=== PATIENT | female | born 1960 | race Caucasian/White ===

== ENCOUNTER → 2017-12-17 09:35 | Outpatient (CLI) | payer BC, SELFPAY ==
[2017-12-17 12:23] LABS: Absolute Lymphocyte Count 3.17 X10^3/ul (0.83-4.51); Basophil# 0.06 X10^3/uL; Eosinophil# 0.34 X10^3/uL; Eosinophils% 5.5 % (0-5); Hematocrit 37.6 % (37-47); Lymphocyte # 3.17 X10^3/ul (4.0); Lymphocyte % 51.3 % (19-41); Mean Corp Hgb Conc 31.9 g/gl (32-36); Mean Corpuscular Hgb 29.6 pg (27.0-32.0); Mean Corpuscular Volume 92.8 fL (81-99); Mean Platelet Vol. 11.4 fl (6.2-12.0); Monocyte% 9.7 % (0-10); Neutrophil % 32.3 % (47-70); Platelet Count 297 K/mm3 (150-450); RBC Distribution Width SD 43.1 fl (35.1-43.9); Red Blood Count 4.05 M/mm3 (4.2-5.4); White Blood Count 6.2 K/mm3 (4.4-11.0)
[2017-12-17 12:38] LABS: POSITIVE COUNT NO; POSITIVE DIFFERENTIAL NO; POSITIVE MORPHOLOGY NO
[2017-12-17 12:58] LABS: Cholesterol 146 mg/dL (200); Ferritin 44 ng/mL (8-252); High Density Lipoprotein 47 mg/dL; Thyroid Stim Hormone (TSH) 3.76 uIU/mL (0.358-3.74); Triglycerides 137 mg/dL; Very Low Density Lipoprotein 27 mg/dL (5-40)
[2017-12-19 10:33] LABS: Anti-Smooth Muscle ABS 10 Units (0-19); HEPATITIS B SURFACE AG Negative (Negative); Hep C Antibodies <0.1 s/co ratio (0.0-0.9)
[2017-12-21 07:56] LABS: ANTINUCLEAR ANTIBODIES DIRECT Negative (Negative)
== END ==
PROVIDERS: Visit Provider Family Medicine
DX: I10 Essential (primary) hypertension (principal); E03.9 Hypothyroidism, unspecified; K74.60 Unspecified cirrhosis of liver
CPT/HCPCS: 36415; 80061; 82728; 83516; 84443; 85025; 86038; 86225; 86235; 86803; 87340

== ENCOUNTER → 2018-02-24 16:55 | Outpatient (CLI) | payer BC, SELFPAY ==
[2018-02-24 18:02] LABS: Thyroid Stim Hormone (TSH) 2.82 uIU/mL (0.358-3.74)
== END ==
PROVIDERS: Family Provider Family Medicine; PCP Family Medicine; Visit Provider Family Medicine
DX: E03.9 Hypothyroidism, unspecified (principal)
CPT/HCPCS: 36415; 84443

== ENCOUNTER → 2018-12-19 | Outpatient (CLI) | payer BC, SELFPAY ==
[2018-12-19 15:39] LABS: Thyroid Stim Hormone (TSH) 1.16 uIU/mL (0.358-3.74)
== END | disposition home or self-care (01) ==
LOC: BFHLAB 13:24
PROVIDERS: PCP Family Medicine; Visit Provider Family Medicine
DX: E03.9 Hypothyroidism, unspecified (principal)
CPT/HCPCS: 36415; 84443

== ENCOUNTER → 2019-06-03 09:35 | Outpatient (CLI) | payer BC, SELFPAY ==
[2019-06-03 10:36] LABS: Absolute Lymphocyte Count 3.21 X10^3/uL (0.83-4.51); Absolute Neutrophil Count 2.5 X10^3/uL (2.0-7.7); Basophil# 0.07 X10^3/uL; Eosinophil# 0.36 X10^3/uL; Hematocrit 33.7 % (37-47); Hemoglobin 10.6 g/dL (12.0-15.0); Lymphocyte # 3.21 X10^3/ul (4.0); Lymphocyte % 44.6 % (19-41); Mean Corp Hgb Conc 31.5 g/dL (32-36); Mean Corpuscular Hgb 28.2 pg (27.0-32.0); Mean Corpuscular Volume 89.6 fL (81-99); Mean Platelet Vol. 10.4 fl (6.2-12.0); Monocyte# 0.83 X10^3/uL; Monocyte% 11.5 % (0-10); NRBC Flagged by Analyzer 0 % (0-5); Neutrophil # 2.54 X10^3/uL (2.7-7.7); Neutrophil % 35.4 % (47-70); Platelet Count 292 K/mm3 (150-450); RBC Distribution Width CV 13.8 % (11.6-14.6); RBC Distribution Width SD 44.7 fl (35.1-43.9); Red Blood Count 3.76 M/mm3 (4.2-5.4); White Blood Count 7.2 K/mm3 (4.4-11.0)
[2019-06-03 11:05] LABS: AST(SGOT) 25 U/L (15-37); Alanine Aminotransfer ALT/SGPT 27 U/L (13-56); Albumin, Serum 3.3 g/dL (3.2-5.0); Alkaline Phosphatase 76 U/L (45-117); Globulin 3.4 g/dL (2.2-4.2); Protein, Total 6.7 g/dL (6.4-8.2)
[2019-06-05 09:43] LABS: Hepatitis B Surface Antibody Non-Reactive; Hepatitis B Surface Antigen Non-Reactive (Nonreactive); Hepatitis C Antibody Non-Reactive (Nonreactive)
[2019-06-05 14:07] LABS: ANTINUCLEAR ANTIBODIES DIRECT Negative (Negative)
[2019-06-05 15:40] LABS: Alpha Antitrypsin Serum 155 mg/dL (101-187); Anti-Mitochondrial AB <20.0 Units (0.0-20.0)
[2019-06-06 09:07] LABS: Hepatitis B Core Ab Total Negative (Negative); Hepatitis Be Ab Negative (Negative); Hepatitis Be Ag Negative (Negative); Immunoglobulin A 389 mg/dL (87-352)
[2019-06-06 15:39] LABS: AFP, Tumor Marker 4.2 ng/mL (0.0-8.3); Anti-Smooth Muscle ABS 12 Units (0-19); CMV by PCR Negative (Negative); Deamidated Gliadin IgA 7 units (0-19); Deamidated Gliadin IgG 2 units (0-19); EBV Acute VCA IgM < 36.0 U/mL (0.0-35.9); EBV Early Antigen IgG >150.0 U/mL (0.0-8.9); EBV Nuclear Antigen IgG > 600.0 U/mL (0.0-17.9); EBV-VCA IgG > 600.0 U/mL (0.0-17.9); Hepatitis A AB, Total Negative (Negative); t-Transglutaminase IgA <2 U/mL (0-3)
== END ==
PROVIDERS: Family Provider Family Medicine; PCP Family Medicine; Referring Provider Internal Medicine Gastroenterology; Visit Provider Internal Medicine Gastroenterology
DX: K76.9 Liver disease, unspecified (principal); R10.9 Unspecified abdominal pain; K76.0 Fatty (change of) liver, not elsewhere classified; R19.4 Change in bowel habit; R19.7 Diarrhea, unspecified; R11.0 Nausea
CPT/HCPCS: 36415; 80076; 82103; 82105; 82390; 82784; 83516; 85025; 86038; 86663; 86664; 86665; 86704; 86706; 86707; 86708; 86803; 87340; 87350; 87496

== ENCOUNTER → 2019-06-06 08:00 | Outpatient (CLI) | payer BC, SELFPAY ==
[2017-09-29 11:53] VITALS: BMI 38.2
[2019-06-09 13:21] LABS: Calprotectin, Stool 103 ug/g (0-120)
== END ==
PROVIDERS: Family Provider Family Medicine; PCP Family Medicine; Referring Provider Internal Medicine Gastroenterology; Visit Provider Internal Medicine Gastroenterology
DX: K76.0 Fatty (change of) liver, not elsewhere classified (principal); K76.9 Liver disease, unspecified; R10.9 Unspecified abdominal pain; R19.4 Change in bowel habit; R19.7 Diarrhea, unspecified; R11.0 Nausea
CPT/HCPCS: 83993; 87506

== ENCOUNTER → 2019-07-05 16:19 | Outpatient (CLI) | payer BC, SELFPAY ==
[2019-07-05 17:24] LABS: International Normalized Ratio 1.1; Prothrombin Time (Protime)PT. 13.9 SECONDS (11.7-14.9)
[2019-07-05 17:40] LABS: Ferritin 55 ng/mL (8-252); Iron 56 ug/dL (50-170); Iron Binding Capacity,Total 327 ug/dL (250-450)
== END ==
PROVIDERS: PCP Family Medicine
DX: R63.0 Anorexia (principal)
CPT/HCPCS: 36415; 82728; 83540; 83550; 85610

== ENCOUNTER → 2020-10-17 13:05 | Outpatient (CLI) | payer BC, SELFPAY ==
[2017-09-29 11:53] VITALS: BMI 38.2
[2020-10-17 15:41] LABS: AST(SGOT) 24 U/L (15-37); Alanine Aminotransfer ALT/SGPT 24 U/L (13-56); Albumin, Serum 3.6 g/dL (3.2-5.0); Alkaline Phosphatase 110 U/L (45-117); Anion Gap 3 (5-15); BUN 20 mg/dL (7-18); BUN/Creat Ratio 11.8 RATIO (10-20); Bilirubin, Direct 0.09 mg/dL (0.00-0.30); Chloride 111 mmol/L (98-107); EST Glomerular Filtration Rate 33 mL/min (>60); Est Glom Filt Rate - Afr Amer 39 mL/min (>60); Globulin 4.7 g/dL (2.2-4.2); Glucose 98 mg/dL (74-106); Potassium 3.9 mmol/L (3.5-5.1); Protein, Total 8.3 g/dL (6.4-8.2); Sodium Level 139 mmol/L (136-145); T4 Free Direct 0.89 ng/dL (0.76-1.46); Thyroid Stim Hormone (TSH) 3.35 uIU/mL (0.358-3.74)
== END ==
PROVIDERS: PCP Family Medicine; Referring Provider Family Medicine; Visit Provider Family Medicine
DX: E03.9 Hypothyroidism, unspecified (principal); I10 Essential (primary) hypertension; K74.3 Primary biliary cirrhosis
CPT/HCPCS: 36415; 80048; 80076; 84439; 84443

== ENCOUNTER → 2021-01-07 13:54 | Outpatient (CLI) | payer BC, SELFPAY ==
[2017-09-29 11:53] VITALS: BMI 38.2
[2021-01-07 17:40] LABS: Anion Gap 6 (5-15); BUN 25 mg/dL (7-18); BUN/Creat Ratio 15.5 RATIO (10-20); Calcium,Total 8.8 mg/dL (8.5-10.1); Chloride 110 mmol/L (98-107); Creatinine, Serum 1.61 mg/dL (0.55-1.02); EST Glomerular Filtration Rate 35 mL/min (>60); Est Glom Filt Rate - Afr Amer 42 mL/min (>60); Glucose 109 mg/dL (74-106); Potassium 4.1 mmol/L (3.5-5.1); Sodium Level 139 mmol/L (136-145)
== END ==
LOC: LAB.FUTURE 13:56 → LAB 15:42
PROVIDERS: PCP Family Medicine; Referring Provider Family Medicine; Visit Provider Family Medicine
DX: I10 Essential (primary) hypertension (principal)
CPT/HCPCS: 36415; 80048

== ENCOUNTER → 2021-03-13 | Outpatient (CLI) | payer BC, SELFPAY ==
[2021-03-13 17:58] LABS: Protein, Urine (Random) 57.9 mg/dL (<11.9); Protein:Creat Ratio 423 mg/g CRE (0-200)
[2021-03-18 15:09] LABS: Alpha-1-Globulin, Ur 2.6 % (.); Beta Globulin, Ur 38.9 % (.); Gamma Globulin, Ur 32.5 % (.); M-Spike, Ur % Not Observed % (Not Observed); Total Protein, Ur 40.6 mg/dL (Not Estab.)
[2021-03-18 15:59] LABS: IFE Result, Ur Comment: (.)
== END | disposition home or self-care (01) ==
LOC: POLAB3 14:36 → LABSPEC 14:38
PROVIDERS: PCP Family Medicine; Visit Provider Internal Medicine Nephrology
DX: N18.32 Chronic kidney disease, stage 3b (principal)
CPT/HCPCS: 82570; 84156; 84166; 86335

== ENCOUNTER → 2021-03-15 09:01 | Outpatient (CLI) | payer BC, SELFPAY ==
--- NOTE | 2021-03-15 09:05 | US_ITS ---
HISTORY: CHRONIC KIDNEY DISEASE. TECHNIQUE: Murillo scale and color Doppler sagittal and transverse images were obtained of the kidneys. # of images incl. paperwork: 76. COMPARISON: None. FINDINGS: RIGHT KIDNEY: 10.2 cm in length. Cortical thickness 12 mm. Echogenicity within normal limits. No hydronephrosis. No gross renal mass demonstrated. LEFT KIDNEY: 10 cm in length. Cortical thickness 13 mm. Echogenicity within normal limits. No hydronephrosis. 8 x 8 x 11 mm lower pole cyst. URINARY BLADDER: Unremarkable at 214 cc. Wall thickness 2 mm, not thickened. US/Kidney and Bladder IMPRESSION: No evidence of hydronephrosis. Small left renal cyst. at 1008 Reported and signed by: Gabbi Villa MD Electronically Signed: Gabbi Villa MD at 10:07 EDT Tel , Service support ,
== END ==
PROVIDERS: PCP Family Medicine; Referring Provider Internal Medicine Nephrology; Visit Provider Internal Medicine Nephrology
DX: N18.32 Chronic kidney disease, stage 3b (principal)
CPT/HCPCS: 76770

== ENCOUNTER → 2021-04-16 15:53 | Outpatient (CLI) | payer BC, SELFPAY ==
[2021-04-16 16:32] LABS: Hematocrit 34.4 % (37-47); Hemoglobin 11.1 g/dL (12.0-15.0); Mean Corp Hgb Conc 32.3 g/dL (32-36); Mean Corpuscular Hgb 29.3 pg (27.0-32.0); Mean Corpuscular Volume 90.8 fL (81-99); Platelet Count 253 K/mm3 (150-450); RBC Distribution Width CV 13.5 % (11.6-14.6); RBC Distribution Width SD 44.7 fl (35.1-43.9); Red Blood Count 3.79 M/mm3 (4.2-5.4)
[2021-04-16 16:49] LABS: PTHIN 78.9 pg/mL (18.4-80.1)
[2021-04-16 16:50] LABS: Albumin, Serum 3.1 g/dL (3.2-5.0); BUN 23 mg/dL (7-18); BUN/Creat Ratio 13.5 RATIO (10-20); Calcium,Total 8.4 mg/dL (8.5-10.1); Chloride 114 mmol/L (98-107); EST Glomerular Filtration Rate 32 mL/min (>60); Est Glom Filt Rate - Afr Amer 39 mL/min (>60); Glucose 101 mg/dL (74-106); Phosphorus 4.1 mg/dL (2.5-4.9); Sodium Level 139 mmol/L (136-145)
[2021-04-16 16:52] LABS: Vitamin D,25 Hydroxy 32.3 ng/mL
[2021-04-18 16:09] LABS: Albumin 3.3 g/dL (2.9-4.4); Alpha-1-Globulins 0.2 g/dL (0.0-0.4); Alpha-2-Globulins 0.7 g/dL (0.4-1.0); Free Kappa Light Chains 137.5 mg/L (3.3-19.4); Gamma Globulin 1.6 g/dL (0.4-1.8); Immunoglobulin A 393 mg/dL (87-352); Immunoglobulin G 1756 mg/dL (586-1602); Immunoglobulin M 33 mg/dL (26-217)
[2021-04-18 20:42] LABS: IMMUNOFIXATION RESULT,S Comment: (.)
== END ==
PROVIDERS: PCP Family Medicine; Visit Provider Internal Medicine Nephrology
DX: N18.32 Chronic kidney disease, stage 3b (principal); E55.9 Vitamin D deficiency, unspecified
CPT/HCPCS: 36415; 80069; 82306; 82784; 83883; 83970; 84165; 85027; 86334

== ENCOUNTER → 2021-10-04 | Outpatient (CLI) | payer BC, SELFPAY ==
[2021-10-04 10:13] LABS: Absolute Lymphocyte Count 2.64 X10^3/uL (0.83-4.51); Absolute Neutrophil Count 2.1 X10^3/uL (2.0-7.7); Basophil# 0.05 X10^3/uL; Basophil% 0.9 % (0-1); Eosinophil# 0.36 X10^3/uL; Eosinophils% 6.3 % (0-5); Hematocrit 34.4 % (37-47); Hemoglobin 10.6 g/dL (12.0-15.0); Lymphocyte # 2.64 X10^3/ul (0.83-4.51); Lymphocyte % 46.2 % (19-41); Mean Corp Hgb Conc 30.8 g/dL (32-36); Mean Platelet Vol. 10.2 fl (6.2-12.0); Monocyte# 0.56 X10^3/uL; Monocyte% 9.8 % (0-10); NRBC Flagged by Analyzer 0 % (0-5); Neutrophil # 2.09 X10^3/uL (2.7-7.7); Neutrophil % 36.6 % (47-70); Platelet Count 235 K/mm3 (150-450); RBC Distribution Width CV 13.2 % (11.6-14.6); RBC Distribution Width SD 45.6 fl (35.1-43.9); Red Blood Count 3.66 M/mm3 (4.2-5.4); White Blood Count 5.7 K/mm3 (4.4-11.0)
[2021-10-04 10:25] LABS: Protein, Urine (Random) 68.5 mg/dL (<11.9); Protein:Creat Ratio 531 mg/g CRE (0-200)
[2021-10-04 10:56] LABS: ALB/GLOB Ratio 0.7 RATIO (0.9-2.4); AST(SGOT) 25 U/L (15-37); Alanine Aminotransfer ALT/SGPT 23 U/L (13-56); Albumin, Serum 3.1 g/dL (3.2-5.0); Alkaline Phosphatase 96 U/L (45-117); BUN 30 mg/dL (7-18); Chloride 115 mmol/L (98-107); Cholesterol 176 mg/dL (200); EST Glomerular Filtration Rate 27 mL/min (>60); Est Glom Filt Rate - Afr Amer 33 mL/min (>60); Globulin 4.4 g/dL (2.2-4.2); Glucose 102 mg/dL (74-106); Potassium 4.8 mmol/L (3.5-5.1); Protein, Total 7.5 g/dL (6.4-8.2); Sodium Level 139 mmol/L (136-145); Triglycerides 96 mg/dL
[2021-10-04 10:57] LABS: Anion Gap 5 (5-15); High Density Lipoprotein 52 mg/dL; T4 Free Direct 0.87 ng/dL (0.76-1.46); Thyroid Stim Hormone (TSH) 1.26 uIU/mL (0.358-3.74); Very Low Density Lipoprotein 19 mg/dL (5-40)
[2021-10-06 09:16] LABS: Vitamin D,25 Hydroxy 30.1 ng/mL
[2021-10-06 09:36] LABS: PTHIN 40.4 pg/mL (18.4-80.1)
[2021-10-06 15:10] LABS: Immunoglobulin A 405 mg/dL (87-352); Immunoglobulin G 1833 mg/dL (586-1602); PROEL- A/G Ratio 0.9 (0.7-1.7); PROEL- Albumin 3.1 g/dL (2.9-4.4); PROEL- Alpha-1 Globulin 0.2 g/dL (0.0-0.4); PROEL- Alpha-2 Globulin 0.6 g/dL (0.4-1.0); PROEL- Beta Globulin 1.2 g/dL (0.7-1.3); PROEL- Gamma Globulin 1.5 g/dL (0.4-1.8); PROEL- Globulin, Total 3.5 g/dL (2.2-3.9); PROEL- TOTAL PROTEIN 6.6 g/dL (6.0-8.5)
[2021-10-06 16:06] LABS: Immunofixation Result, Serum Comment: (.); Immunoglobulin M 37 mg/dL (26-217)
== END | disposition home or self-care (01) ==
LOC: LAB 09:43
PROVIDERS: PCP Family Medicine; Referring Provider Family Medicine; Visit Provider Family Medicine
DX: E03.9 Hypothyroidism, unspecified (principal); N18.30 Chronic kidney disease, stage 3 unspecified; R77.8 Other specified abnormalities of plasma proteins
CPT/HCPCS: 36415; 80053; 80061; 82306; 82570; 82784; 83970; 84156; 84165; 84439; 84443; 85025; 86334

== ENCOUNTER → 2021-11-24 | Outpatient (CLI) | payer BC, SELFPAY ==
--- NOTE | 2021-11-24 13:30 | RAD_ITS ---
EXAM: XR BONE SURVEY, COMPLETE CLINICAL INDICATION: R/O LYTIC LESIONS LOW LEVEL M PROTEIN TECHNIQUE: Multiple views of the bones of the axial and appendicular skeleton. This report was created using [employer] report [employer] technology. COMPARISON: None. FINDINGS: BONES/JOINTS: Degenerative findings in the cervical spine. Anterior fusion plate visualized at C5-6. There are degenerative findings of the thoracic spine. Grade 1 anterolisthesis of L4 on L5. There is a metal sideplate transfixing the left humerus. There are cortical screws holding the plate in place. There are multi-level degenerative changes of the lumbar spine. Degenerative findings of the knee. Healed left mid tibial and fibular fracture. SOFT TISSUES: There are multiple metallic clips in the right upper quadrant. This is consistent for a cholecystectomy. Significant amount of fat overlying the left leg soft tissue and right leg soft tissue. This likely represents a large body habitus. VASCULATURE: There are atherosclerotic vascular calcifications. RAD/Bone Survey Comp(Axial&Append) IMPRESSION: No acute findings in the skeleton. Electronically Signed: Colton Bryant MD at 14:59 EDT Reading Location ID and State: [facility] / [place] , Service support ,
== END | disposition home or self-care (01) ==
LOC: RAD 13:25
PROVIDERS: PCP Family Medicine; Referring Provider Internal Medicine Hematology & Oncology; Visit Provider Internal Medicine Hematology & Oncology
DX: M50.30 Other cervical disc degeneration, unspecified cervical region (principal); M51.34 Other intervertebral disc degeneration, thoracic region; M51.36 Other intervertebral disc degeneration, lumbar region
CPT/HCPCS: 77075

== ENCOUNTER → 2022-03-03 | Outpatient (CLI) | payer BC, SELFPAY ==
[2022-03-03 16:01] LABS: Absolute Lymphocyte Count 3.05 X10^3/uL (0.83-4.51); Absolute Neutrophil Count 4.1 X10^3/uL (2.0-7.7); Basophil# 0.09 X10^3/uL; Eosinophil# 0.31 X10^3/uL; Eosinophils% 3.6 % (0-5); Hematocrit 36.1 % (37-47); Lymphocyte # 3.05 X10^3/ul (0.83-4.51); Lymphocyte % 35.3 % (19-41); Mean Corp Hgb Conc 30.5 g/dL (32-36); Mean Corpuscular Hgb 29.4 pg (27.0-32.0); Mean Corpuscular Volume 96.5 fL (81-99); Mean Platelet Vol. 10.4 fl (6.2-12.0); Monocyte# 0.99 X10^3/uL; Monocyte% 11.5 % (0-10); NRBC Flagged by Analyzer 0 % (0-5); Neutrophil # 4.14 X10^3/uL (2.7-7.7); Platelet Count 308 K/mm3 (150-450); RBC Distribution Width CV 13.6 % (11.6-14.6); RBC Distribution Width SD 48.5 fl (35.1-43.9); Red Blood Count 3.74 M/mm3 (4.2-5.4); White Blood Count 8.6 K/mm3 (4.4-11.0)
[2022-03-03 16:13] LABS: Protein, Urine (Random) 19.6 mg/dL (<11.9); Protein:Creat Ratio 552 mg/g CRE (0-200)
[2022-03-03 16:27] LABS: Vitamin D,25 Hydroxy 42.3 ng/mL
[2022-03-03 16:29] LABS: ALB/GLOB Ratio 0.7 RATIO (0.9-2.4); AST(SGOT) 26 U/L (15-37); Alanine Aminotransfer ALT/SGPT 25 U/L (13-56); Albumin, Serum 3.3 g/dL (3.2-5.0); Alkaline Phosphatase 105 U/L (45-117); Anion Gap 6 (5-15); BUN 19 mg/dL (7-18); BUN/Creat Ratio 13.8 RATIO (10-20); Chloride 111 mmol/L (98-107); Creatinine, Serum 1.38 mg/dL (0.55-1.02); EST Glomerular Filtration Rate 41 mL/min (>60); Est Glom Filt Rate - Afr Amer 50 mL/min (>60); Globulin 4.7 g/dL (2.2-4.2); Glucose 97 mg/dL (74-106); Sodium Level 139 mmol/L (136-145)
[2022-03-04 08:12] LABS: PTHIN 42.1 pg/mL (18.4-80.1)
== END | disposition home or self-care (01) ==
LOC: LAB 14:34
PROVIDERS: PCP Family Medicine; Referring Provider Family Medicine; Visit Provider Family Medicine
DX: I12.9 Hypertensive chronic kidney disease with stage 1 through stage 4 chronic kidney disease, or unspecified chronic kidney disease (principal); N18.30 Chronic kidney disease, stage 3 unspecified; R77.8 Other specified abnormalities of plasma proteins
CPT/HCPCS: 36415; 80053; 82306; 82570; 83970; 84156; 85025

== ENCOUNTER 2022-04-21 15:44 | Outpatient (CLI) | payer BC, SELFPAY ==
[2022-04-21 16:13] LABS: Absolute Lymphocyte Count 2.93 X10^3/uL (0.83-4.51); Absolute Neutrophil Count 6.6 X10^3/uL (2.0-7.7); Basophil# 0.03 X10^3/uL; Basophil% 0.3 % (0-1); Eosinophil# 0.04 X10^3/uL; Eosinophils% 0.4 % (0-5); Hematocrit 38.5 % (37-47); Hemoglobin 12.3 g/dL (12.0-15.0); Lymphocyte # 2.93 X10^3/ul (0.83-4.51); Lymphocyte % 28.3 % (19-41); Mean Corp Hgb Conc 31.9 g/dL (32-36); Mean Corpuscular Hgb 30.1 pg (27.0-32.0); Mean Corpuscular Volume 94.4 fL (81-99); Mean Platelet Vol. 10.4 fl (6.2-12.0); Monocyte# 0.69 X10^3/uL; Monocyte% 6.7 % (0-10); NRBC Flagged by Analyzer 0 % (0-5); Neutrophil # 6.63 X10^3/uL (2.7-7.7); Neutrophil % 63.8 % (47-70); Platelet Count 290 K/mm3 (150-450); RBC Distribution Width CV 13.2 % (11.6-14.6); RBC Distribution Width SD 45.1 fl (35.1-43.9); Red Blood Count 4.08 M/mm3 (4.2-5.4); White Blood Count 10.4 K/mm3 (4.4-11.0)
[2022-04-21 16:37] LABS: Vitamin B12 596 pg/mL (211-911)
[2022-04-21 16:43] LABS: ALB/GLOB Ratio 0.7 RATIO (0.9-2.4); AST(SGOT) 25 U/L (15-37); Alanine Aminotransfer ALT/SGPT 30 U/L (13-56); Albumin, Serum 3.4 g/dL (3.2-5.0); Alkaline Phosphatase 89 U/L (45-117); Anion Gap 8 (5-15); BUN 26 mg/dL (7-18); BUN/Creat Ratio 18.4 RATIO (10-20); Calcium,Total 8.7 mg/dL (8.5-10.1); Chloride 105 mmol/L (98-107); Creatinine, Serum 1.41 mg/dL (0.55-1.02); EST Glomerular Filtration Rate 40 mL/min (>60); Est Glom Filt Rate - Afr Amer 49 mL/min (>60); Ferritin 46 ng/mL (8-252); Glucose 129 mg/dL (74-106); Iron 53 ug/dL (50-170); Iron Binding Capacity,Total 372 ug/dL (250-450); PERCENT IRON SATURATION 14.2 % (15.0-55.0); Potassium 3.9 mmol/L (3.5-5.1); Protein, Total 8.4 g/dL (6.4-8.2); Sodium Level 137 mmol/L (136-145)
[2022-04-24 00:07] LABS: Albumin 3.7 g/dL (2.9-4.4); Alpha-1-Globulins 0.3 g/dL (0.0-0.4); Alpha-2-Globulins 0.9 g/dL (0.4-1.0); Free Kappa Light Chains 119.7 mg/L (3.3-19.4); Free Lambda Light Chains 40.6 mg/L (5.7-26.3); Gamma Globulin 1.9 g/dL (0.4-1.8); Immunoglobulin A 452 mg/dL (87-352); Immunoglobulin G 2227 mg/dL (586-1602); Immunoglobulin M 49 mg/dL (26-217); PROEL- TOTAL PROTEIN 8.1 g/dL (6.0-8.5)
== END 2022-04-21 23:59 | disposition home or self-care (01) ==
LOC: LAB 15:46
PROVIDERS: PCP Family Medicine; Visit Provider Internal Medicine Hematology & Oncology
DX: D64.9 Anemia, unspecified (principal); D47.2 Monoclonal gammopathy
CPT/HCPCS: 36415; 80053; 82607; 82728; 82784; 83540; 83550; 83883; 84165; 85025; 86334

== ENCOUNTER → 2022-10-20 | Outpatient (CLI) | payer BC, SELFPAY ==
[2022-10-20 11:22] LABS: Absolute Lymphocyte Count 2.48 X10^3/uL (0.83-4.51); Absolute Neutrophil Count 1.3 X10^3/uL (2.0-7.7); Basophil# 0.06 X10^3/uL; Basophil% 1.3 % (0-1); Eosinophil# 0.28 X10^3/uL; Eosinophils% 6.1 % (0-5); Hematocrit 36.2 % (37-47); Lymphocyte # 2.48 X10^3/ul (0.83-4.51); Lymphocyte % 53.8 % (19-41); Mean Corp Hgb Conc 30.4 g/dL (32-36); Mean Corpuscular Hgb 29.3 pg (27.0-32.0); Mean Corpuscular Volume 96.5 fL (81-99); Mean Platelet Vol. 11.3 fl (6.2-12.0); Monocyte# 0.52 X10^3/uL; Monocyte% 11.3 % (0-10); NRBC Flagged by Analyzer 0 % (0-5); Neutrophil # 1.26 X10^3/uL (2.7-7.7); Neutrophil % 27.3 % (47-70); Platelet Count 203 K/mm3 (150-450); RBC Distribution Width CV 14.2 % (11.6-14.6); Red Blood Count 3.75 M/mm3 (4.2-5.4); White Blood Count 4.6 K/mm3 (4.4-11.0)
[2022-10-20 12:02] LABS: ALB/GLOB Ratio 0.7 RATIO (0.9-2.4); AST(SGOT) 25 U/L (15-37); Alanine Aminotransfer ALT/SGPT 21 U/L (13-56); Albumin, Serum 3.1 g/dL (3.2-5.0); Alkaline Phosphatase 95 U/L (45-117); Anion Gap 8 (5-15); BUN 15 mg/dL (7-18); BUN/Creat Ratio 12.1 RATIO (10-20); Calcium,Total 9.1 mg/dL (8.5-10.1); Chloride 114 mmol/L (98-107); Creatinine, Serum 1.24 mg/dL (0.55-1.02); EST Glomerular Filtration Rate 47 mL/min (>60); Est Glom Filt Rate - Afr Amer 56 mL/min (>60); Globulin 4.4 g/dL (2.2-4.2); Glucose 94 mg/dL (74-106); Potassium 3.8 mmol/L (3.5-5.1); Protein, Total 7.5 g/dL (6.4-8.2); Sodium Level 142 mmol/L (136-145)
[2022-10-20 18:45] LABS: Xtra Tube EP Lab EXTRA TUBE
[2022-10-22 14:09] LABS: Albumin 3.4 g/dL (2.9-4.4); Alpha-1-Globulins 0.2 g/dL (0.0-0.4); Alpha-2-Globulins 0.7 g/dL (0.4-1.0); Free Kappa Light Chains 128.1 mg/L (3.3-19.4); Free Lambda Light Chains 51.1 mg/L (5.7-26.3); Gamma Globulin 1.7 g/dL (0.4-1.8); Immunoglobulin A 364 mg/dL (87-352); Immunoglobulin G 1807 mg/dL (586-1602); Immunoglobulin M 42 mg/dL (26-217)
== END | disposition home or self-care (01) ==
LOC: LAB 10:38
PROVIDERS: PCP Family Medicine; Referring Provider Internal Medicine Hematology & Oncology; Visit Provider Internal Medicine Hematology & Oncology
DX: D47.2 Monoclonal gammopathy (principal)
CPT/HCPCS: 36415; 80053; 82784; 83883; 84165; 85025; 86334

== ENCOUNTER → 2022-11-10 | Outpatient (CLI) | payer BC, SELFPAY ==
[2022-11-10 19:04] LABS: Thyroid Stim Hormone (TSH) 0.86 uIU/mL (0.358-3.74)
== END | disposition home or self-care (01) ==
LOC: BFHLAB 16:27
PROVIDERS: PCP Family Medicine; Referring Provider Family Medicine; Visit Provider Family Medicine
DX: E03.9 Hypothyroidism, unspecified (principal)
CPT/HCPCS: 36415; 84443

== ENCOUNTER → 2022-11-24 | Outpatient (CLI) | payer BC, SELFPAY ==
--- NOTE | 2022-11-24 14:35 | BI_ITS ---
MAMMOGRAPHY - BILATERAL SCREENING REASON FOR EXAM: Female, 62 years old. Routine annual screening examination. PERTINENT HISTORY: Non-contributory. Remote history of right breast biopsy. TECHNIQUE: Digital bilateral breast davina (3D mammographic acquisition) in the CC and MLO projections. 2-D mediolateral oblique (MLO) and craniocaudad (CC) views of both breasts were obtained. CAD: Full Field Digital Mammography with Computer Added Detection was performed. COMPARISON: Mammogram from 11/09/2005, 10/21/2004. FINDINGS: Breast Composition: There are scattered areas of fibroglandular density. There are no dominant masses or suspicious calcifications. Stable biopsy marker in the right breast. No other significant abnormalities are identified. There has been no significant change since the prior study. BI/SCRN MAMM (CAD)W/DAVINA BILAT IMPRESSION: Negative screening mammogram. Overall, stable examination since 2005. Yearly followup mammogram recommended. (A) ASSESSMENT CATEGORY: BIRADS Category 2: Benign. A letter regarding these results will be sent to the patient by the facility within 30 days. Approximately 10% of breast cancers are not detected by mammography. A normal mammogram should not delay biopsy of a clinically suspicious abnormality. Electronically Signed: Arvind Ricci DO at 10:09 EDT ,
== END | disposition home or self-care (01) ==
LOC: OPBI 14:33
PROVIDERS: PCP Family Medicine; Referring Provider Family Medicine; Visit Provider Family Medicine
DX: Z12.31 Encounter for screening mammogram for malignant neoplasm of breast (principal)
CPT/HCPCS: 77063; 77067

== ENCOUNTER → 2023-08-05 | Outpatient (CLI) | payer BC, SELFPAY ==
--- NOTE | 2023-08-05 14:19 | RAD_ITS ---
STUDY: X-RAY CHEST REASON FOR EXAM: Female, 63 years old. Cough with decreased breath sounds. TECHNIQUE: Frontal and lateral views of the chest. COMPARISON: None. FINDINGS: The lungs are clear and expanded. There is no demonstrated pleural abnormality. Normal size heart. Normal mediastinum and will. Normal visualized pulmonary arteries. Normal visualized aortic arch and descending thoracic aorta. Normal visualized thoracic spine. Posterior fusion of the lower cervical spine and plate and screw fixation of the left proximal humerus. No abnormality of the visualized soft tissue structures of the upper abdomen. RAD/Chest PA and Lateral IMPRESSION: No interval change and no acute or active cardiopulmonary disease. Electronically Signed: Shaq Chavez MD at 15:55 EST ,
== END | disposition home or self-care (01) ==
LOC: MTRAD 14:15
PROVIDERS: PCP Family Medicine; Referring Provider Family Medicine; Visit Provider Family Medicine
DX: R05.9 Cough, unspecified (principal)
CPT/HCPCS: 71046

== ENCOUNTER → 2024-01-07 | Outpatient (CLI) | payer BC, SELFPAY ==
[2024-01-07 08:40] LABS: Absolute Lymphocyte Count 2.85 X10^3/uL (0.83-4.51); Absolute Neutrophil Count 1.9 X10^3/uL (2.0-7.7); Basophil# 0.07 X10^3/uL; Basophil% 1.2 % (0-1); Eosinophils% 5.2 % (0-5); Lymphocyte # 2.85 X10^3/ul (0.83-4.51); Lymphocyte % 49.2 % (19-41); Mean Corp Hgb Conc 30.6 g/dL (32-36); Mean Corpuscular Hgb 29.3 pg (27.0-32.0); Mean Corpuscular Volume 95.7 fL (81-99); Mean Platelet Vol. 10.6 fl (6.2-12.0); Monocyte# 0.67 X10^3/uL; Monocyte% 11.6 % (0-10); NRBC Flagged by Analyzer 0 % (0-5); Neutrophil # 1.88 X10^3/uL (2.7-7.7); Neutrophil % 32.5 % (47-70); Platelet Count 204 K/mm3 (150-450); RBC Distribution Width CV 13.6 % (11.6-14.6); RBC Distribution Width SD 47.8 fl (35.1-43.9); Red Blood Count 3.76 M/mm3 (4.2-5.4); White Blood Count 5.8 K/mm3 (4.4-11.0)
[2024-01-07 09:12] LABS: Vitamin D,25 Hydroxy 36.6 ng/mL
[2024-01-07 09:21] LABS: ALB/GLOB Ratio 0.6 RATIO (0.9-2.4); AST(SGOT) 30 U/L (15-37); Alanine Aminotransfer ALT/SGPT 23 U/L (13-56); Albumin, Serum 3.1 g/dL (3.2-5.0); Alkaline Phosphatase 106 U/L (45-117); Anion Gap 5 (5-15); BUN 23 mg/dL (7-18); Calcium,Total 8.9 mg/dL (8.5-10.1); Chloride 116 mmol/L (98-107); Cholesterol 166 mg/dL (200); Creatinine, Serum 1.77 mg/dL (0.55-1.02); EST Glomerular Filtration Rate 31 mL/min (>60); Est Glom Filt Rate - Afr Amer 37 mL/min (>60); Globulin 4.9 g/dL (2.2-4.2); Glucose 98 mg/dL (74-106); High Density Lipoprotein 50 mg/dL; Potassium 4.6 mmol/L (3.5-5.1); Sodium Level 139 mmol/L (136-145); Thyroid Stim Hormone (TSH) 2.44 uIU/mL (0.358-3.74); Triglycerides 180 mg/dL; Very Low Density Lipoprotein 36 mg/dL (5-40)
[2024-01-11 14:10] LABS: Albumin 3.5 g/dL (2.9-4.4); Alpha-1-Globulins 0.2 g/dL (0.0-0.4); Alpha-2-Globulins 0.6 g/dL (0.4-1.0); Gamma Globulin 1.9 g/dL (0.4-1.8); Immunoglobulin A 386 mg/dL (87-352); Immunoglobulin G 2175 mg/dL (586-1602); Immunoglobulin M 37 mg/dL (26-217); PROEL- TOTAL PROTEIN 7.4 g/dL (6.0-8.5)
== END | disposition home or self-care (01) ==
PROVIDERS: Internal Medicine Hematology & Oncology; PCP Family Medicine; Referring Provider Family Medicine; Visit Provider Family Medicine
DX: I12.9 Hypertensive chronic kidney disease with stage 1 through stage 4 chronic kidney disease, or unspecified chronic kidney disease (principal); N18.30 Chronic kidney disease, stage 3 unspecified; E03.9 Hypothyroidism, unspecified; I89.0 Lymphedema, not elsewhere classified
CPT/HCPCS: 36415; 80053; 80061; 82306; 82784; 84165; 84443; 85025; 86334

== ENCOUNTER → 2024-02-29 | Outpatient (CLI) | payer BC, SELFPAY ==
--- NOTE | 2024-02-29 14:34 | RAD_ITS ---
STUDY: X-RAY - LEFT KNEE REASON FOR EXAM: Female, 64 years old. KNEE PAIN TECHNIQUE: 4 views of the left knee. COMPARISON: None. FINDINGS: Normal visualized distal femur. Normal visualized proximal tibia and fibula. Normal proximal tibiofibular articulation. There is no demonstrated fracture. There is minimal degenerative arthrosis of the medial femorotibial compartment. There is minimal degenerative arthrosis of the lateral femorotibial compartment. There is minimal degenerative arthrosis of the patellofemoral articulation. The soft tissue structures are unremarkable. RAD/Knee 4 or More Views IMPRESSION: Minimal tricompartment degenerative arthrosis. No demonstrated fracture. Electronically Signed: Estrada Garber MD at 16:06 EDT ,
== END | disposition home or self-care (01) ==
LOC: MTRAD 14:33
PROVIDERS: PCP Family Medicine; Referring Provider Family Medicine; Visit Provider Family Medicine
DX: M25.562 Pain in left knee (principal)
CPT/HCPCS: 73564

== ENCOUNTER → 2024-07-11 | Outpatient (CLI) | payer BC, SELFPAY ==
[2024-07-11 15:19] LABS: Absolute Lymphocyte Count 2.82 X10^3/uL (0.83-4.51); Absolute Neutrophil Count 2.4 X10^3/uL (2.0-7.7); Basophil# 0.06 X10^3/uL; Eosinophil# 0.28 X10^3/uL; Eosinophils% 4.5 % (0-5); Hematocrit 35.5 % (37-47); Lymphocyte # 2.82 X10^3/ul (0.83-4.51); Lymphocyte % 45.3 % (19-41); Mean Corpuscular Hgb 29.2 pg (27.0-32.0); Mean Corpuscular Volume 94.2 fL (81-99); Mean Platelet Vol. 11.1 fl (6.2-12.0); Monocyte# 0.66 X10^3/uL; Monocyte% 10.6 % (0-10); NRBC Flagged by Analyzer 0 % (0-5); Neutrophil # 2.39 X10^3/uL (2.7-7.7); Neutrophil % 38.4 % (47-70); Platelet Count 216 K/mm3 (150-450); RBC Distribution Width CV 13.2 % (11.6-14.6); RBC Distribution Width SD 45.5 fl (35.1-43.9); Red Blood Count 3.77 M/mm3 (4.2-5.4); White Blood Count 6.2 K/mm3 (4.4-11.0)
[2024-07-11 15:49] LABS: Vitamin D,25 Hydroxy 28.5 ng/mL
[2024-07-11 15:58] LABS: ALB/GLOB Ratio 0.7 RATIO (0.9-2.4); AST(SGOT) 22 U/L (15-37); Alanine Aminotransfer ALT/SGPT 20 U/L (13-56); Albumin, Serum 3.4 g/dL (3.2-5.0); Alkaline Phosphatase 85 U/L (45-117); Anion Gap 5 (5-15); BUN 20 mg/dL (7-18); BUN/Creat Ratio 12.6 RATIO (10-20); Chloride 113 mmol/L (98-107); Creatinine, Serum 1.59 mg/dL (0.55-1.02); EST Glomerular Filtration Rate 35 mL/min (>60); Est Glom Filt Rate - Afr Amer 42 mL/min (>60); Globulin 4.8 g/dL (2.2-4.2); Glucose 85 mg/dL (74-106); Potassium 4.4 mmol/L (3.5-5.1); Protein, Total 8.2 g/dL (6.4-8.2); Sodium Level 137 mmol/L (136-145)
== END | disposition home or self-care (01) ==
LOC: BFHLAB 13:43
PROVIDERS: PCP Family Medicine; Visit Provider Family Medicine
DX: I12.9 Hypertensive chronic kidney disease with stage 1 through stage 4 chronic kidney disease, or unspecified chronic kidney disease (principal); N18.30 Chronic kidney disease, stage 3 unspecified; E03.9 Hypothyroidism, unspecified; I89.0 Lymphedema, not elsewhere classified
CPT/HCPCS: 36415; 80053; 82306; 84443; 85025

== ENCOUNTER → 2024-10-04 | Outpatient (CLI) | payer BC, SELFPAY ==
[2024-10-09 13:07] LABS: Albumin 3.4 g/dL (2.9-4.4); Alpha-1-Globulins 0.2 g/dL (0.0-0.4); Alpha-2-Globulins 0.8 g/dL (0.4-1.0); Immunoglobulin A 387 mg/dL (87-352); Immunoglobulin G 2338 mg/dL (586-1602); Immunoglobulin M 34 mg/dL (26-217); PROEL- TOTAL PROTEIN 7.7 g/dL (6.0-8.5)
== END | disposition home or self-care (01) ==
LOC: LAB 15:02
PROVIDERS: PCP Family Medicine; Referring Provider Internal Medicine Hematology & Oncology; Visit Provider Internal Medicine Hematology & Oncology
DX: D47.2 Monoclonal gammopathy (principal)
CPT/HCPCS: 36415; 82784; 84165; 86334